=== PATIENT | female | born 1940 | race Caucasian/White ===

== ENCOUNTER → 2016-07-21 | Day surgery (SDC) | payer MEDICARE, MEDICAID ==
[~2016-07-21] VITALS: Ht 162.6 cm; Wt 68.0 kg
[~2016-07-21] MED LIST: ALBUTEROL SULFATE 2.5 MG/0.5 ML INH NEB SOLN As Ordered ONE; ALBUTEROL SULFATE 2.5 MG/0.5 ML INH NEB SOLN INH SCH; BONI150T PO; BUTR5DIS2 TD; CODE60TA PO; COMBAER6 INH; DEXI30CA PO; ELIQ5TAB PO; EPINEPHrine 1MG/10ML SYRINGE 1.5IN As Ordered ONE; FURO20TA2 PO; GLYCOPYRROLATE INJ 0.2 MG/ML 2 ML VIAL As Ordered ONE; LEVO25TA5 PO; LIDOCAINE 1% SDV INJ 30 ML VIAL As Ordered ONE; LIDOCAINE 2% INJ 100 MG/5 ML SDV (FOR ANES.) As Ordered ONE; LIDOCAINE 4% TOPICAL SOLN 50 ML BTL As Ordered ONE; LIDOCAINE VISCOUS 2% SOLN 15ML UDC As Ordered ONE; LIDOCAINE VISCOUS 2% SOLN 15ML UDC MT ONE; LOSA25TA8 PO; LR 1,000 ML IV SCH; LYRI75CA PO; MACR100C42 PO; MIDAZOLAM INJ 2 MG/2 ML VIAL (J2250) As Ordered ONE; MIRA1TAB3 PO; NEOSTIGMINE 1MG/ML 5 ML SYRINGE (J2710) As Ordered ONE; PHENYLephrine HCL 500 MCG/5 ML (100MCG/ML) SYRINGE (J2370) As Ordered ONE; POTA20TA PO; PROPOFOL 200 MG/20 ML VIAL As Ordered ONE; ROCURONIUM BROMIDE 50 MG/5 ML VIAL As Ordered ONE; SIMV5TAB4 PO; SYMB16INH INH; THROMBIN SOLN 20,000 UNITS KIT As Ordered ONE; THROMBIN SOLN 5,000 UNITS VIAL As Ordered ONE; TIOT18INH INH; TOPR100T PO; TOPR50TA PO; ZEGRID PO; ePHEDrine SULFATE 25 MG/5 ML(5MG/ML) SYRINGE As Ordered ONE; fentaNYL 100 MCG/2 ML INJECTION (J3010) As Ordered ONE
--- NOTE | 2016-07-21 15:24 | RO ---
DATE OF PROCEDURE: 07/21/2016 PROCEDURE: Bronchoscopy with electromagnetic navigation, fine-needle aspiration and fiducial marker placement. PREOPERATIVE DIAGNOSES: Right upper lobe lesion, abnormal chest CT. POSTOPERATIVE DIAGNOSES: Right upper lobe lesion, abnormal chest CT. FINDINGS: Anatomical variant airway. PROCEDURALIST: Dr. Cl Tim. ANESTHESIA: General anesthesia. Please refer to their records for details. 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 SPECIMENS: 1. GenCut FNA 2. Transbronchial forceps biopsies right upper lobe. 3. Cytobrush right upper lobe. 4. Bronchoalveolar lavage right upper lobe. DESCRIPTION OF PROCEDURE: After informed consent was reviewed with the patient in the preoperative area, she was brought back to OR number 6, which is a premapped room. The patient was sedated and anesthetized after general anesthesia was initiated with an 8.5 endotracheal tube. The endotracheal tube was sprayed with Cetacaine spray. The 1T180 bronchoscope was then inserted into the endotracheal tube after a time-out was performed with two patient identifiers, identifying correct site and correct procedure. The bronchoscope was used to view all airways. There was minimal amounts of mucus, crips and banding. No endobronchial lesions. Trachea was midline. Lolis was sharp. Right and left mainstem bronchus was normal except for an anatomic variant. There was an extra airway coming off the apical portion of the upper lobe. The patient had three airways in this accessory lobe. All airways were suctioned and free of endobronchial lesions, RB 1 through 10 and the accessory lobe. LB 1 through 10 was also anatomically variant. All airways were without endobronchial lesions. The bronchoscope was then moved into the endotracheal tube, navigation probe was placed, automatic registration was performed with ease. The right upper lobe lesion was then navigated easily. Pictures were taken to show the proximity on the i[employer] machine. The probe was within 5 mm of the specified lesion. The probe was removed and sheath remained. The GenCut FNA was performed twice followed by multiple transbronchial forceps biopsies, approximately eight. This was followed by cytology brush. Fiducial marker was then placed in the area and bronchoalveolar lavage was performed. After this was completed, the catheter was removed from the airway. All airways were then suctioned and the bronchoscope was removed. The patient is in recovery. Chest x-ray is pending. There were no observed complications. [facility]
[2016-07-21 17:02] VITALS: BP 153/75
--- NOTE | 2016-07-21 17:29 | REP ---
SINGLE VIEW CHEST: Single portable view of the chest is performed and compared to prior study of 05/28/2015. Heavy interstitial fibrosis is seen bilaterally. Right upper lobe mass density is seen with an adjacent metallic clip. There is no pneumothorax. Cardiomediastinal silhouette is unchanged. IMPRESSION: No pneumothorax. Signed by Orville French MD 07/22/2016 05:13 P
--- NOTE | 2016-07-23 16:39 | ECGEPIP ---
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 BORDERLINE PRECORDIAL VOLTAGE WITH REPOLARIZATION ABNORMALITIES IN KEEPING WITH LVH NO PRIOR TRACING FOR COMPARISON CLINICAL CORRELATION ADVISED Electronically Signed On 07-23-2016 16:39:41 EST by Leonard Aguayo
== END | disposition home or self-care (01) ==
LOC: M SDC 10:56
PROVIDERS: ATTEND Internal Medicine Pulmonary Disease
DX: R91.1 Solitary pulmonary nodule (principal); R91.8 Other nonspecific abnormal finding of lung field; J98.8 Other specified respiratory disorders; J43.9 Emphysema, unspecified; I11.0 Hypertensive heart disease with heart failure; E03.9 Hypothyroidism, unspecified; I48.91 Unspecified atrial fibrillation; M54.2 Cervicalgia; G89.29 Other chronic pain; E78.00 Pure hypercholesterolemia, unspecified; M06.9 Rheumatoid arthritis, unspecified; I71.4 Abdominal aortic aneurysm, without rupture; F17.290 Nicotine dependence, other tobacco product, uncomplicated; I25.10 Atherosclerotic heart disease of native coronary artery without angina pectoris; I25.2 Old myocardial infarction; R60.0 Localized edema; K58.1 Irritable bowel syndrome with constipation; R29.898 Other symptoms and signs involving the musculoskeletal system; G47.9 Sleep disorder, unspecified; M81.0 Age-related osteoporosis without current pathological fracture; R06.02 Shortness of breath; Z88.1 Allergy status to other antibiotic agents; Z88.8 Allergy status to other drugs, medicaments and biological substances; Z79.899 Other long term (current) drug therapy; Z79.01 Long term (current) use of anticoagulants; Z87.81 Personal history of (healed) traumatic fracture; Z86.718 Personal history of other venous thrombosis and embolism; Z86.73 Personal history of transient ischemic attack (TIA), and cerebral infarction without residual deficits; Z86.19 Personal history of other infectious and parasitic diseases; Z87.440 Personal history of urinary (tract) infections; Z90.710 Acquired absence of both cervix and uterus
CPT/HCPCS: 31623; 31624; 31626; 31627; 31628; 31629; 71010; 76000; 87070; 87102; 87116; 87205; 87206; 88104; 88172; 88173; 88305; 88313; 93005; 94640; A4648; J2250; J2370; J2710; J3010

== ENCOUNTER → 2016-12-30 | Outpatient (CLI) | payer MEDICARE, MEDICAID ==
[~2016-12-30] MED LIST changes: -ALBUTEROL SULFATE 2.5 MG/0.5 ML INH NEB SOLN As Ordered ONE; -ALBUTEROL SULFATE 2.5 MG/0.5 ML INH NEB SOLN INH SCH; -EPINEPHrine 1MG/10ML SYRINGE 1.5IN As Ordered ONE; -GLYCOPYRROLATE INJ 0.2 MG/ML 2 ML VIAL As Ordered ONE; +LIDOCAINE 1% MDV 20ML VIAL As Ordered ONE; -LIDOCAINE 1% SDV INJ 30 ML VIAL As Ordered ONE; -LIDOCAINE 2% INJ 100 MG/5 ML SDV (FOR ANES.) As Ordered ONE; -LIDOCAINE 4% TOPICAL SOLN 50 ML BTL As Ordered ONE; -LIDOCAINE VISCOUS 2% SOLN 15ML UDC As Ordered ONE; -LIDOCAINE VISCOUS 2% SOLN 15ML UDC MT ONE; -LR 1,000 ML IV SCH; -MIDAZOLAM INJ 2 MG/2 ML VIAL (J2250) As Ordered ONE; -NEOSTIGMINE 1MG/ML 5 ML SYRINGE (J2710) As Ordered ONE; -PHENYLephrine HCL 500 MCG/5 ML (100MCG/ML) SYRINGE (J2370) As Ordered ONE; -PROPOFOL 200 MG/20 ML VIAL As Ordered ONE; -ROCURONIUM BROMIDE 50 MG/5 ML VIAL As Ordered ONE; -THROMBIN SOLN 20,000 UNITS KIT As Ordered ONE; -THROMBIN SOLN 5,000 UNITS VIAL As Ordered ONE; -ePHEDrine SULFATE 25 MG/5 ML(5MG/ML) SYRINGE As Ordered ONE; -fentaNYL 100 MCG/2 ML INJECTION (J3010) As Ordered ONE
== END ==
LOC: M RADPRO 08:23
PROVIDERS: ATTEND Internal Medicine Pulmonary Disease
DX: C85.12 Unspecified B-cell lymphoma, intrathoracic lymph nodes (principal); J43.9 Emphysema, unspecified; I11.0 Hypertensive heart disease with heart failure; I48.91 Unspecified atrial fibrillation; M40.03 Postural kyphosis, cervicothoracic region; G89.29 Other chronic pain; M06.9 Rheumatoid arthritis, unspecified; E78.00 Pure hypercholesterolemia, unspecified; G47.10 Hypersomnia, unspecified; F17.218 Nicotine dependence, cigarettes, with other nicotine-induced disorders; Z79.899 Other long term (current) drug therapy; Z88.1 Allergy status to other antibiotic agents; Z88.8 Allergy status to other drugs, medicaments and biological substances

== ENCOUNTER → 2017-01-14 | Outpatient (REF) | payer MEDICARE, MEDICAID ==
[~2017-01-14] MED LIST changes: +BUTR5DIS TD; -BUTR5DIS2 TD; -DEXI30CA PO; +DEXI30CA2 PO; -LIDOCAINE 1% MDV 20ML VIAL As Ordered ONE
== END ==
LOC: M LAB REF 10:11
PROVIDERS: ATTEND Nurse Practitioner Family
DX: R79.9 Abnormal finding of blood chemistry, unspecified (principal)

== ENCOUNTER → 2017-01-20 | Outpatient (CLI) | payer MEDICARE, MEDICAID ==
--- NOTE | 2017-01-21 13:25 | REP ---
PET/CT: History: Initial staging B-cell lymphoma. The patient status post CT guided needle biopsy December 30, 2016 of the right lung nodule . Comparisons: CT study December 04, 2016. Comparison PET/CT study June 30, 2014. TECHNIQUE: 52 minutes following the intravenous injection of a 9.6 mCi dose of F-18 FDG, three-dimensional PET scintigraphy is acquired from the skull base to the proximal thighs. Triplanar noncontrast CT scanning is acquired through the same anatomic range for attenuation correction, and image registration with scan parameters optimized to minimize radiation exposure to the patient. PET scintigraphy and CT datasets were fused and displayed on a workstation with multiplanar and projection display capability. PET/CT Findings: The recently biopsied right upper lobe pulmonary nodule is markedly hypermetabolic with maximum standard uptake value of 26.5. There are multiple smaller hypermetabolic lung nodules in the right chest with maximum standard uptake value ranging from 3.4 to 7.1. These are fairly numerous. There is a lower level of hypermetabolic uptake along the apex of the left heart border with maximum standard uptake value here 3.9. This focus measures 3.1 cm in greatest diameter. No abnormal focus is seen elsewhere on the left. In the abdomen and pelvis there is no abnormal hypermetabolic uptake. An abdominal aortic aneurysm is seen measuring 4.0 cm in greatest diameter. Head and neck soft tissues are unremarkable. No other abnormal uptake is seen. Impression: Numerous foci of hypermetabolic uptake in the right chest including the biopsied nodule which is markedly hypermetabolic. There is one focus of lower level hypermetabolic uptake in a 3 cm soft tissue density along the apex of the left heart. No other abnormal hypermetabolic uptake is seen. A 4 cm abdominal aortic aneurysm is noted. Signed by Bimal Estevez MD 01/21/2017 05:15 P
== END ==
LOC: M PLARAD 12:15
PROVIDERS: ATTEND Internal Medicine Medical Oncology
DX: C83.00 Small cell B-cell lymphoma, unspecified site (principal); I71.4 Abdominal aortic aneurysm, without rupture
CPT/HCPCS: 78815; A9552

== ENCOUNTER 2017-02-14 03:12 | Day surgery (SDC) | payer MEDICARE, MEDICAID ==
[2017-02-14] MEDS: NS 1,000 ML IV SCH ×2 (04:11→13:37)
[2017-02-14 04:12] LABS: INR 1.37
[2017-02-14 04:27] LABS: BASO % 0.3 % (0.0-1.0); EOS # 0.1 K/mm3 (0.0-0.50); LARGE UNSTAINED CELL # 0.2 K/mm3 (0.0-0.4); LARGE UNSTAINED CELL % 1.8 % (0.0-4.0); LYMPH # 0.7 K/mm3 (1.5-4.5); MEAN CORPUSCULAR HGB CONC 32.6 g/dl (32.0-36.5); MEAN CORPUSCULAR VOLUME 85.7 fl (80.0-96.0); MONO # 0.3 K/mm3 (0.0-0.8); MONO % 3.7 % (0.0-5.0); NEUTROPHILS # 7.5 K/mm3 (1.8-7.7); NEUTROPHILS % 85.2 % (36.0-66.0); PLATELET COUNT, AUTOMATED 148 k/mm3 (150-450); RED CELL DISTRIBUTION WIDTH 15.6 % (11.5-14.5); WHITE BLOOD COUNT 8.8 K/mm3 (4.0-10.0)
[2017-02-14 04:33] LABS: CALCIUM LEVEL 7.9 MG/DL (8.8-10.2); CREATININE FOR GFR 1.19 MG/DL (0.55-1.02); GLOMERULAR FILTRATION RATE 46.8 (>39); POTASSIUM SERUM 3.5 MEQ/L (3.5-5.1)
[2017-02-14] MEDS ORDERED: MIDAZOLAM INJ 2 MG/2 ML VIAL (J2250) As Ordered ONE (05:45)
[2017-02-14] MEDS ORDERED: fentaNYL 100 MCG/2 ML INJECTION (J3010) As Ordered ONE (05:46)
--- NOTE | 2017-02-14 05:50 | REPUSA ---
CLINICAL HISTORY: Neck pain. TECHNIQUE: Multiple axial images were obtained through the cervical spine. Images were also reconstru cted in coronal and sagittal planes. The study was performed without IV contrast. COMMENTS: There is mild to moderate anterior wedging fracture involving C4 vertebral body. Anterior spondylolis thesis of C3 on C4 measuring 5 mm is visualized. The paraspinal soft tissues are unremarkable. There are no lytic or blastic lesions. Straightening of cervical lordosis is seen, suggesting muscular spasm. There is evidence of severe mu ltilevel disk disease, demonstrated by osteophytosis, loss of disk space heights and endplate scleros is. At C3-4 to C6-7 levels broad based disk-osteophyte complex is noted with multilevel canal and foramin al stenosis. IMPRESSION: Straightening of cervical lordosis is seen, suggesting muscular spasm. Mild to moderate anterior wedging fracture involving C4 vertebral body. A nterior spondylolisthesis of C3 on C4 measuring 5 mm. Severe multilevel disk disease. At C3-4 to C6-7 levels broad based disk-osteophyte complex with canal and foraminal stenosis at each level. Consider follow up with MRI. Thank you for your kind referral of this patient.
[2017-02-14] MEDS ORDERED: SUCCINYLCHOLINE 100 MG/5 ML SYRINGE (J0330) As Ordered ONE (06:26)
[2017-02-14] MEDS ORDERED: ONDANSETRON 4MG/2ML VIAL (J2405) As Ordered ONE (06:26)
[2017-02-14] MEDS ORDERED: PROPOFOL 200 MG/20 ML VIAL As Ordered ONE (06:27)
--- NOTE | 2017-02-14 06:36 | ECGEPIP ---
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
--- NOTE | 2017-02-14 06:50 | ED PDOC ---
Post-Departure Follow-Up kristie lewis faxed formal report of ct c spine for fu Aravind Bhatt MD Feb 14, 2017 06:50
[2017-02-14] MEDS ORDERED: ONDANSETRON 4MG/2ML VIAL (J2405) IV PRN (07:15)
[2017-02-14] MEDS ORDERED: fentaNYL 100 MCG/2 ML INJECTION (J3010) IV PRN (07:15)
[2017-02-14] MEDS ORDERED: PERCOCET 5MG/325MG TAB PO PRN (07:15)
[2017-02-14] MEDS ORDERED: LR 1,000 ML IV SCH (07:15)
[2017-02-14 08:00] VITALS: BP 130/63
[2017-02-14 08:30] VITALS: BP 123/57
[2017-02-14 09:30] VITALS: BP 117/59
--- NOTE | 2017-02-14 10:01 | REP ---
REASON: History of carcinoma of the lung. COMPARISON: 12/30/2016 Scattered pulmonary nodules and fibrotic changes are seen throughout the lung mcgrath essentially unchanged from the prior exam when the technical differences between the examinations are taken into consideration. No new opacities have developed. There is cardiomegaly status quo. There is no change in the osseous structures. IMPRESSION: Carcinoma of the lung, which is known. Findings as described above. Signed by Jerry Childress DO 02/14/2017 10:17 A
[2017-02-14 10:30] VITALS: BP 113/62
[2017-02-14 11:30] VITALS: BP 117/63
[2017-02-14 12:30] VITALS: BP 115/62
--- NOTE | 2017-02-14 14:55 | CR ---
DATE OF CONSULTATION: 02/14/2017 TIME: 4:59 a.m. This is 76-year white female with multiple medical problems who was transferred down from [facility] for a sudden onset of food impaction. The patient was eating stake and apparently did not cut it completely and it has become dislodged in the esophagus since 6:30 last evening. The patient is unable to swallow her own secretions. She states that she has occasional episodes of dysphagia whenever she eats. She has no involuntary weight loss. Does not complain of any chest pain, no shortness of breath. She is on Dexilant for acid reflux. She has a recent diagnosis of a mass in the lung, but the pathology is unclear to me at this time. She will be undergoing chemotherapy soon. She has not received any radiation. PAST MEDICAL HISTORY: Positive for chronic obstructive pulmonary disease (COPD). Atrial fibrillation. She is on Eliquis for this. Congestive heart failure (CHF). High blood pressure. Hypothyroidism. MEDICATIONS: Include: - albuterol - Eliquis - budesonide - Symbicort - codeine sulfate - Dexilant - Lasix 20 mg a day - Boniva - Synthroid - losartan - metoprolol - Mirapex - Lyrica - simvastatin SOCIAL HISTORY: The patient smokes a pack a day. Alcohol noncontributory. FAMILY HISTORY: Noncontributory to the current problem. PHYSICAL EXAMINATION: Generally, she is a well-developed white female who is unable to lift her head. According to the patient's , she has some degenerative issues with her cervical spine. She is able to lift her head with her hand, but not able to maintain it in an up position. Chest was clear to auscultation. Cardiovascular exam showed an irregular rhythm. No murmurs or gallops. Normal physiological split, S1 and S2. Abdomen is soft, nontender. No masses, guarding or rebound. No hepatosplenomegaly. Bowel sounds positive. Extremities no clubbing, cyanosis, or edema. Homans negative. Laboratory studies on admission on 02/14/2017 showed a white count 8800, hemoglobin 13.8, hematocrit 42.2, platelets were 148,000. Chemistry showed normal electrolytes, BUN 23, creatinine is 1.1. INR was 1.37. PT was 17.2. She had a PET scan on 01/20/2017 for initial staging of B-cell lymphoma of the right lung. Impression showed numerous foci of hypermetabolic uptake in the right chest with a nodule which is hypermetabolic. Some focus of low level hypermetabolic uptake near a 3 cm soft tissue mass along the apex of the left heart. No other abnormal hypermetabolic uptake. A 4 cm abdominal aortic aneurysm is also noted. ANALYSIS: Soft tissue food impaction in a patient with multiple medical problems and who is anticoagulated. PLAN: Plan will be to perform upper endoscopy in the main OR under controlled circumstances with the patient intubated in an attempt to slowly remove the food bolus. Informed consent has been received the patient.
--- NOTE | 2017-02-16 13:30 | RO ---
DATE OF PROCEDURE: 02/14/2017 PREOPERATIVE DIAGNOSIS: POSTOPERATIVE DIAGNOSIS: PROCEDURE: Upper endoscopy. SURGEON: Dr. Bg Paul LEAD CARE MANAGER: ANESTHESIA: DESCRIPTION OF PROCEDURE: After general anesthesia with intubation, a Olympus GIF-190 video gastroscope was passed into the esophagus under direct vision. At the cervical esophagus, a food impaction was appreciated. This was gently pushed into the stomach without difficulty. There was some distal esophageal inflammation and some mild narrowing. The scope was easily passed to the stomach. Cardia, fundus, body, antrum, pylorus, and duodenal bulb were essentially seen to be normal. We then withdrew the scope, and the patient tolerated procedure well. ANALYSIS: Cervical esophageal food impaction gently pushed into the stomach without difficulty. No tumors or masses were seen. No significant obstruction was noted. We then withdrew the scope. Patient tolerated the procedure well. PLAN 1. Will be to recommend patient be maintained out of bed/on . 2. Avoid 3. Soft diet only. 4. Patient to followup with her primary.
== END 2017-02-14 14:55 | disposition home or self-care (01) ==
LOC: M ED 03:12 → M SDC 04:30 → M MS5PR 07:36 → M SDC 14:55
PROVIDERS: ATTEND Internal Medicine Gastroenterology
DX: T18.128A Food in esophagus causing other injury, initial encounter (principal); X58.XXXA Exposure to other specified factors, initial encounter; Y92.89 Other specified places as the place of occurrence of the external cause; C85.10 Unspecified B-cell lymphoma, unspecified site; R91.8 Other nonspecific abnormal finding of lung field; J44.9 Chronic obstructive pulmonary disease, unspecified; I11.0 Hypertensive heart disease with heart failure; I48.91 Unspecified atrial fibrillation; I50.9 Heart failure, unspecified; E03.9 Hypothyroidism, unspecified; K21.9 Gastro-esophageal reflux disease without esophagitis; E78.5 Hyperlipidemia, unspecified; J45.909 Unspecified asthma, uncomplicated; Z99.81 Dependence on supplemental oxygen; I73.9 Peripheral vascular disease, unspecified; Z86.718 Personal history of other venous thrombosis and embolism; M54.9 Dorsalgia, unspecified; B15.9 Hepatitis A without hepatic coma; Z79.899 Other long term (current) drug therapy; Z79.01 Long term (current) use of anticoagulants; Z79.51 Long term (current) use of inhaled steroids; F17.210 Nicotine dependence, cigarettes, uncomplicated; Z88.1 Allergy status to other antibiotic agents; Z88.8 Allergy status to other drugs, medicaments and biological substances; Z88.2 Allergy status to sulfonamides
CPT/HCPCS: 43247; 71010; 72125; 80048; 85025; 85610; 85730; 93005; 99284; J0330; J2250; J2405; J3010